=== PATIENT | male | born 1970 | race Two or more races ===

== ENCOUNTER 2024-04-20 09:17 | Outpatient (CLI) | payer OTHER, SELFPAY ==
[2024-04-20 09:54] LABS: Basophils % 0.3 % (0.1-2.0); Eosinophils # 0.1 K/mm3 (0.0-0.4); Eosinophils % 2.8 % (0.1-12.0); Hematocrit 44.7 % (42.0-52.0); Hemoglobin 16.1 g/dL (14.1-18.0); Lymphocytes # 1.1 K/mm3 (0.7-4.5); Lymphocytes % 26.8 % (10-50); Mean Corpuscular Hemoglobin 33.3 pg (27.0-31.2); Mean Corpuscular Volume 92.5 fl (80-94); Mean Platelet Volume 9.1 fl (7.4-10.4); Monocytes # 0.3 K/mm3 (0.1-1.0); Monocytes % 6.8 % (1.7-9.3); Neutrophils # 2.5 K/mm3 (1.8-7.8); Platelet Count 181 K/mm3 (142-424); Red Blood Count 4.83 M/mm3 (4.60-6.20); Red Cell Distribution Width 12.1 % (11.5-17.5)
[2024-04-20 10:09] LABS: Albumin Level 4.8 g/dl (3.5-5.0); Chloride 102 mmol/L (98-107); Potassium 3.8 mmoL/L (3.5-5.1); Sodium 142 mmol/L (136-145)
[2024-04-20 10:12] LABS: Albumin/Globulin Ratio 2.3 (1.1-1.8); Alkaline Phosphatase 63 U/L (38-126); Anion Gap 15.8 mEq/L (5-15); Bilirubin,Total 0.8 mg/dl (0.2-1.3); Blood Urea Nitrogen 9 mg/dl (9-20); Calcium 9.6 mg/dl (8.4-10.2); Carbon Dioxide 28 mmol/L (22.0-30.0); Estimated Glomerular Filt Rate 119 ml/min (>60); GFR (African American) 144 ML/MIN (>60); Globulin 2.1 g/dL (1.3-3.2); Glucose 152 mg/dl (74-100); Total Protein,Serum 6.9 g/dl (6.3-8.2)
[2024-04-20 10:14] LABS: Alanine Aminotransferase 27 U/L (12-78); Aspartate Amino Transferase 26 U/L (17-59)
[2024-04-21 05:08] LABS: Hep Be Ag Negative (Negative)
[2024-04-21 08:28] LABS: AFP, Tumor Marker 2.5 ng/mL (0.0-8.4); HBsAg Confirmation Positive (.)
[2024-04-22 13:11] LABS: HBV IU/mL <10 IU/mL (.)
== END 2024-04-20 23:59 | disposition home or self-care (01) ==
LOC: LAB 09:19
PROVIDERS: PCP Family Medicine; Visit Provider Internal Medicine Gastroenterology
DX: B18.1 Chronic viral hepatitis B without delta-agent (principal); K74.69 Other cirrhosis of liver; B19.20 Unspecified viral hepatitis C without hepatic coma
CPT/HCPCS: 36415; 80053; 82105; 85025; 87340; 87350; 87517